=== PATIENT | female | born 1965 | race Caucasian/White ===

== ENCOUNTER 2019-03-12 06:27 | Emergency (ER) | payer OTHER ==
[2019-03-12 06:40] VITALS: RESP 18
[2019-03-12] MEDS ORDERED: PROPARACAINE 0.5% OPHTH DROPS 15 ML BTL BOTH EYES STA (07:08)
[2019-03-12] MEDS ORDERED: ERYTHROMYCIN 5 MG/GM OPHTH OINT 3.5 GM TUBE BOTH EYES STA (07:23)
--- NOTE | 2019-03-12 07:50 | ED ---
ENT HPI - General Chief complaint: ENT Stated complaint: [facility] fb in eye Time Seen by Provider: 03/12/19 07:23 Source: patient, RN notes reviewed, old records reviewed Mode of arrival: ambulatory Limitations: no limitations - History of Present Illness Initial comments: Patient is a 53-year-old female presents emergency department today for evaluation with complaints of right eye irritation. Patient lives that she got something in her eye yesterday at work. She flushed her eye directly after. Stated significant well. Patient states that last night she was sleeping started to have pain, and swelling and drainage from the eye. She reports her eyes are sensitive to light. She does wear glasses. - Related Data Previous Rx's Medication Instructions Recorded Ofloxacin 0.3% Ophth Soln [Ocuflox 1 drops RIGHT EYE QID #1 bottle 03/12/19 Ophth Soln] Allergies Allergy/AdvReac Type Severity Reaction Status Date / Time Penicillins Allergy Unknown Verified 03/12/19 07:33 Childhood Review of Systems ROS Statement: Those systems with pertinent positive or pertinent negative responses have been documented in the HPI. ROS Other: All systems not noted in ROS Statement are negative. Past Medical History Past Medical History: No Reported History History of Any Multi-Drug Resistant Organisms: None Reported Past Surgical History: No Surgical Hx Reported Past Psychological History: No Psychological Hx Reported Smoking Status: Current every day smoker Past Alcohol Use History: Occasional Past Drug Use History: None Reported General Exam - General Exam Comments Initial Comments: 33-year-old female. Alert and oriented. No significant distress. Limitations: no limitations General appearance: alert, in no apparent distress Head exam: Present: atraumatic, normocephalic, normal inspection Eye exam: Present: PERRL, EOMI, conjunctival injection (Right eye conjunctival injection.), other (Patient has evidence of corneal ulceration measuring 2-3 mm on the 6 o'clock position of the right eye.). Absent: normal appearance, scleral icterus, periorbital swelling ENT exam: Present: normal exam, mucous membranes moist Neck exam: Present: normal inspection. Absent: tenderness, meningismus, lymphadenopathy Respiratory exam: Present: normal lung sounds bilaterally. Absent: respiratory distress, wheezes, rales, rhonchi, stridor Cardiovascular Exam: Present: regular rate, normal rhythm, normal heart sounds. Absent: systolic murmur, diastolic murmur, rubs, gallop, clicks GI/Abdominal exam: Present: soft, normal bowel sounds. Absent: distended, tenderness, guarding, rebound, rigid Extremities exam: Present: normal inspection, full ROM, normal capillary refill. Absent: tenderness, pedal edema, joint swelling, calf tenderness Back exam: Present: normal inspection Neurological exam: Present: alert, oriented X3, CN II-XII intact Psychiatric exam: Present: normal affect, normal mood Course Vital Signs 03/12/19 06:37 Temperature 98.6 F Pulse Rate 88 Respiratory 18 Rate Blood Pressure 129/79 O2 Sat by Pulse 96 Oximetry Medical Decision Making - Medical Decision Making Patient is a 53-year-old female pedestrian times a day right eye irritation. Patient reports she had a foreign body yesterday while at work and within her eye. She flushed her eye. She went home and went to sleep. She will return to work today with worsening pain. She denies any visual changes. On physical exam she is evidence of corneal abrasion at the 6 o'clock position. Patient was started on ciprofloxacin ophthalmic drops. Discussed the Patient is have close follow-up with ophthalmology. Given referral for ophthalmology today. Discussed that she does follow up with them tomorrow today. Disposition Clinical Impression: Corneal ulceration Disposition: HOME SELF-CARE Condition: Good Instructions (If sedation given, give patient instructions): Corneal Ulcer (ED) Additional Instructions: Patient advised to apply the ophthalmic drops each hour to the right eye. Patient should follow-up with ophthalmology today. Return to the emergency department if any alarming signs or symptoms occur. Prescriptions: Ofloxacin 0.3% Ophth Soln [Ocuflox Ophth Soln] 1 drops RIGHT EYE QID #1 bottle Is patient prescribed a controlled substance at d/c from ED?: No Referrals: Ashley Rivera NPC [Primary Care Provider] - 1-2 days Monty Steiner MD [STAFF PHYSICIAN] - 1-2 days Time of Disposition: 08:15
[2019-03-12] MEDS ORDERED: OFLOXACIN 0.3% OPHTH DROPS 5 ML BOTTLE RIGHT EYE STA (08:16)
[2019-03-12 09:09] VITALS: BP 107/74; PULSE 87; TEMP 97.9
== END 2019-03-12 09:09 | disposition home or self-care (01) ==
LOC: EC 06:27
DX: H16.001 Unspecified corneal ulcer, right eye (principal); F17.200 Nicotine dependence, unspecified, uncomplicated; Z88.0 Allergy status to penicillin; Z97.3 Presence of spectacles and contact lenses
CPT/HCPCS: 99283